=== PATIENT | male | born 1945 | race African-American/Black ===

== ENCOUNTER 2020-02-03 05:08 | Day surgery (SDC) | payer OTHER ==
[2020-02-02 15:34] VITALS: BMI 16.7
[2020-02-03 06:37] LABS: EPI CELLS 6 /uL (0-25.1); HYALINE CASTS 4 /uL (0-3.1); PH,URINE 5.5 (5.0-8.0); URINE APPEARANCE TURBID; URINE BACTERIA >9,000 /uL (0-1359); URINE BILIRUBIN NEGATIVE (NEGATIVE); URINE COLOR YELLOW; URINE GLUCOSE (UA) NEGATIVE (NEGATIVE); URINE KETONE NEGATIVE (NEGATIVE); URINE LEUK ESTERASE 3+ (NEGATIVE); URINE NITRITE POSITIVE (NEGATIVE); URINE PROTEIN 1+ (NEGATIVE); URINE UROBILINOGEN 0.2 mg/dL (0.2-1.0); URINE WBC 5938 /uL (0-25.8)
[2020-02-03] MEDS ORDERED: EPHEDRINE SULFATE/0.9% NACL/PF 50 MG/10 ML SYRINGE NR ONE ×2 (08:16→09:40)
[2020-02-03] MEDS ORDERED: DEXAMETHASONE SOD PHOSPHATE 4 MG/1 ML VIAL ONE (08:16)
[2020-02-03] MEDS ORDERED: PROPOFOL 20 ML ONE (08:16)
[2020-02-03] MEDS ORDERED: SUCCINYLCHOLINE CHLORIDE 200 MG/10 ML SYRINGE ONE (08:16)
[2020-02-03] MEDS ORDERED: MIDAZOLAM HCL 2 MG/2 ML SINGLE DOSE VIAL ONE (08:18)
[2020-02-03] MEDS ORDERED: ceFAZolin SODIUM 1 GM VIAL IVPB ONE (09:25)
[2020-02-03] MEDS ORDERED: ceFAZolin SODIUM 1 GM VIAL ONE (09:26)
[2020-02-03] MEDS ORDERED: GENTAMICIN SO4 80 MG/2 ML VIAL ONE (09:26)
[2020-02-03] MEDS ORDERED: GENTAMICIN 80MG PREMIX BAG IVPB ONE (09:30)
[2020-02-03] MEDS ORDERED: GENTAMICIN SO4 80 MG/2 ML VIAL IVPB ONE (09:30)
[2020-02-03] MEDS ORDERED: oxyCODONE HCL 5 MG TABLET PO PRN ×2 (09:52)
[2020-02-03] MEDS ORDERED: ONDANSETRON 4 MG/2 ML VIAL IVPUSH PRN (09:52)
[2020-02-03] MEDS ORDERED: LACTATED RINGERS SOLUTION 1,000 ML IV SCH (10:00)
[2020-02-03] MEDS ORDERED: BACITRACIN 15 GM TUBE TOPICAL OINTMENT ONE (10:21)
[2020-02-03] MEDS ORDERED: BACITRACIN 15 GM TUBE TOPICAL OINTMENT TP ONE (10:26)
[2020-02-03 13:28] VITALS: BP 120/84; PULSE 94; TEMP 98
[2020-02-03 15:55] LABS: URINE RBC 137 /uL (0-23.9)
== END 2020-02-03 14:05 | disposition home or self-care (01) ==
LOC: JASU-SURG 05:08
PROVIDERS: ATTEND Urology
PROC: 0V503ZZ Destruction of Prostate, Percutaneous Approach (ICD-10-PCS; principal; 2020-02-03 09:00)
DX: C61 Malignant neoplasm of prostate (principal)
CPT/HCPCS: 55873; C2618; 81003; 94760